=== PATIENT | female | born 1995 | race Caucasian/White ===

== ENCOUNTER 2021-11-04 09:55 | Outpatient (CLI) | payer OTHER | END 2021-11-04 09:56 | disposition home or self-care (01) | LOC: CSHULT 09:55 | PROVIDERS: ATTEND Family Medicine | DX: O09.892 Supervision of other high risk pregnancies, second trimester (principal); Z3A.20 20 weeks gestation of pregnancy | CPT/HCPCS: 76805 ==

== ENCOUNTER 2022-02-10 10:00 | Day surgery (SDC) | payer OTHER ==
[2022-02-10 11:02] VITALS: BMI 41.8
== END 2022-02-10 12:30 | disposition home or self-care (01) ==
LOC: CSHLD/OP 10:00
PROVIDERS: ATTEND Family Medicine
DX: O24.913 Unspecified diabetes mellitus in pregnancy, third trimester (principal); Z3A.35 35 weeks gestation of pregnancy; Z79.4 Long term (current) use of insulin
CPT/HCPCS: 76815; 76819

== ENCOUNTER 2022-02-17 09:28 | Day surgery (SDC) | payer OTHER | END 2022-02-17 10:55 | disposition home or self-care (01) | LOC: CSHLD/OP 09:28 | PROVIDERS: ATTEND Family Medicine | DX: O24.913 Unspecified diabetes mellitus in pregnancy, third trimester (principal); Z79.4 Long term (current) use of insulin; Z3A.37 37 weeks gestation of pregnancy | CPT/HCPCS: 76819; 99282 ==

== ENCOUNTER 2022-02-24 09:49 | Day surgery (SDC) | payer OTHER | END 2022-02-24 13:00 | disposition home or self-care (01) | LOC: CSHLD/OP 09:49 | PROVIDERS: ATTEND Family Medicine | DX: O24.419 Gestational diabetes mellitus in pregnancy, unspecified control (principal); Z3A.36 36 weeks gestation of pregnancy; Z20.822 Contact with and (suspected) exposure to COVID-19 | CPT/HCPCS: 59025; 76815; 76819; 99282 ==

== ENCOUNTER 2022-02-24 13:04 | Outpatient (CLI) | payer OTHER ==
[2022-02-24 21:34] LABS: SARS-CoV-2 PCR by NAA Not Detected (NotDetected)
== END 2022-02-24 13:05 | disposition home or self-care (01) ==
LOC: CSHLAB 13:04
PROVIDERS: ATTEND Family Medicine
DX: Z20.822 Contact with and (suspected) exposure to COVID-19 (principal)
CPT/HCPCS: 59025; 76815; 76819; 99282; U0003; U0005

== ENCOUNTER 2022-02-28 18:00 | Inpatient (IN) | payer OTHER ==
[~2022-02-28 18:00] MED LIST: Bupivacaine 0.25% HCL 30 ML VIAL ONE; Terbutaline Sulfate 1 MG/ML VIAL ONE
[2022-02-28 19:29] VITALS: BMI 41.6
[2022-02-28] MEDS ORDERED: Diphenoxylate HCl/Atropine Tablet PO PRN (19:52)
[2022-02-28] MEDS ORDERED: Promethazine HCl 25 MG/ML VIAL IM PRN (19:52)
[2022-02-28] MEDS ORDERED: Ondansetron PF 4 MG/2 ML Vial IVP PRN (19:52)
[2022-02-28] MEDS ORDERED: HYDROcodone/Acetaminophen 5/325 mg Tablet PO PRN (19:52)
[2022-02-28] MEDS ORDERED: Butorphanol Tartrate 1 MG/ML VIAL SLOW IVP PRN (19:52)
[2022-02-28] MEDS ORDERED: Lidocaine 1% (PF) 30 ML VIAL SC PRN (19:52)
[2022-02-28] MEDS ORDERED: Methylergonovine 0.2 MG/ML VIAL IM PRN (19:52)
[2022-02-28] MEDS ORDERED: hydrALAZINE 20 MG/ML VIAL SLOW IVP PRN (19:52)
[2022-02-28] MEDS ORDERED: Carboprost 250 MCG/ML AMP IM PRN (19:52)
[2022-02-28] MEDS ORDERED: Acetaminophen 500 MG TAB PO PRN (19:52)
[2022-02-28] MEDS ORDERED: Misoprostol 200 MCG TAB PR PRN (19:52)
[2022-02-28] MEDS ORDERED: Ibuprofen 800 MG TAB PO PRN (19:52)
[2022-02-28] MEDS ORDERED: NS w/ Oxytocin 30 units 500 ML IV SCH ×2 (20:00)
[2022-02-28 20:28] LABS: Hemoglobin 10.5 g/dL (12.0-15.5); Mean Corpuscular HGB CONC 33.2 g/dL (32.0-36.0); Mean Corpuscular Hemoglobin 25.1 pg (27.0-33.0); Mean Corpuscular Volume 75.6 fl (81.6-98.3); Mean Platelet Volume 10.4 fl (7.4-10.4); Platelet Count 303 10x3/uL (150-450); RBC Distribution Width 13.3 % (11.5-14.5); Red Blood Cell (RBC) Count 4.18 10x6/uL (3.90-5.03)
[2022-02-28] MEDS: Misoprostol 100 MCG TAB PO SCH (20:40)
[2022-02-28 20:48] LABS: Glucose 242 mg/dL (70-105)
[2022-02-28 21:00] LABS: Hep B Surf Ag Non-Reactive S/CO (NonReactive); Syphilis Antibody Nonreactive (Nonreactive); Syphilis Antibody Index 0.04 S/CO (<1.00 Non-Reactive)
[2022-02-28 21:08] LABS: HBSAg Index 0.16 S/CO (0-0.99)
[2022-02-28] MEDS ORDERED: Lantus 1000 UNITS/10 ML VIAL SC SCH (21:15)
[2022-02-28] MEDS ORDERED: HumaLOG 300 UNITS/3 ML VIAL SC SCH (21:15)
[2022-03-01] MEDS ORDERED: Fentanyl 2 mcg/Bup 0.1% Cadd 100 ML ONE (10:19)
[2022-03-01] MEDS ORDERED: Ondansetron PF 4 MG/2 ML Vial IVP PRN ×2 (10:27→22:15)
[2022-03-01] MEDS ORDERED: Moisturizing Cream (Eucerin) 113 GM JAR TOP PRN (10:27)
[2022-03-01] MEDS ORDERED: diphenhydrAMINE 50 MG/ML VIAL IVP PRN (10:27)
[2022-03-01] MEDS ORDERED: Acetaminophen 325 MG TAB PO PRN (10:27)
[2022-03-01] MEDS ORDERED: Promethazine HCl 25 MG/ML VIAL IM PRN ×2 (10:27→22:15)
[2022-03-01] MEDS ORDERED: ePHEDrine Sulfate 50 MG/10 ML VIAL SLOW IVP PRN (10:27)
[2022-03-01] MEDS ORDERED: Lactated Ringer's 500 ML IV PRN (10:27)
[2022-03-01] MEDS ORDERED: Naloxone HCl 0.4 mg/ml Vial IVP PRN ×2 (10:27)
[2022-03-01] MEDS ORDERED: Communication Order-Pharmacy FS SCH (10:30)
[2022-03-01] MEDS: Lactated Ringer's 1,000 ML IV SCH (10:32)
[2022-03-01] MEDS ORDERED: Fentanyl 2 mcg/Bupivacaine 0.1% Cassette 100 ML EPIDURAL SCH (11:00)
[2022-03-01] MEDS ORDERED: Terbutaline Sulfate 1 MG/ML VIAL SC SCH (16:30)
[2022-03-01] MEDS ORDERED: metFORMIN 500 MG TAB PO SCH (19:30)
[2022-03-01] MEDS ORDERED: Boostrix 0.5 ML (Tdap) VIAL IM ONE (22:15)
[2022-03-01] MEDS ORDERED: NS w/ Oxytocin 30 units 500 ML IV SCH (22:15)
[2022-03-01] MEDS ORDERED: diphenhydrAMINE 25 MG CAP PO PRN (22:15)
[2022-03-01] MEDS ORDERED: Benzocaine-Menthol 82.5 ML CAN TOP PRN (22:15)
[2022-03-01] MEDS ORDERED: Bisacodyl 10 MG SUPP PR PRN (22:15)
[2022-03-01] MEDS ORDERED: hydrALAZINE 20 MG/ML VIAL SLOW IVP PRN (22:15)
[2022-03-01] MEDS ORDERED: Milk Of Magnesia 30 ML UDCUP PO PRN (22:15)
[2022-03-01] MEDS ORDERED: HYDROcodone/Acetaminophen 5/325 mg Tablet PO PRN (22:15)
[2022-03-01] MEDS: Docusate 100 MG CAP PO SCH (23:30)
[2022-03-01] MEDS: Ibuprofen 800 MG TAB PO SCH (23:30)
[2022-03-02] MEDS: Misoprostol 100 MCG TAB PO SCH (02:02)
[2022-03-02] MEDS: Lactated Ringer's 1,000 ML IV SCH (02:03)
[2022-03-02] MEDS: Ibuprofen 800 MG TAB PO SCH ×4 (06:39→21:59)
[2022-03-02] MEDS ORDERED: metFORMIN 500 MG TAB PO SCH (08:00)
[2022-03-02] MEDS: Ferrous Sulfate 325 MG TAB PO SCH ×2 (08:03→15:56)
[2022-03-02] MEDS: Docusate 100 MG CAP PO SCH ×2 (08:55→21:59)
[2022-03-02] MEDS: Prenatal Vitamin 1 TAB PO SCH (08:55)
[2022-03-02] MEDS: metFORMIN 500 MG TAB PO SCH ×2 (15:58→17:05)
[2022-03-03] MEDS: Ibuprofen 800 MG TAB PO SCH ×2 (06:00→14:27)
[2022-03-03] MEDS: Ferrous Sulfate 325 MG TAB PO SCH ×2 (08:44→17:02)
[2022-03-03] MEDS: metFORMIN 500 MG TAB PO SCH ×2 (10:20→17:59)
[2022-03-03] MEDS: Docusate 100 MG CAP PO SCH (10:20)
[2022-03-03] MEDS: Prenatal Vitamin 1 TAB PO SCH (10:20)
[2022-03-03 10:31] VITALS: BP 116/63; TEMP 98.2
[2022-03-03] MEDS ORDERED: Measles/Mumps/Rubella 10 MCG/0.5 ML VIAL SC ONE (17:45)
== END 2022-03-03 18:05 | disposition home or self-care (01) | DRG 807 ==
LOC: CSHLD 18:59 → CSHPP 03-01 21:56
PROVIDERS: ADMIT Family Medicine; ATTEND Family Medicine
PROC: 10E0XZZ Delivery of Products of Conception, External Approach (ICD-10-PCS; principal; 2022-03-01)
PROC: 10907ZC Drainage of Amniotic Fluid, Therapeutic from Products of Conception, Via Natural or Artificial Opening (ICD-10-PCS; 2022-03-01)
PROC: 3E0P7VZ Introduction of Hormone into Female Reproductive, Via Natural or Artificial Opening (ICD-10-PCS; 2022-03-01)
PROC: 10H07YZ Insertion of Other Device into Products of Conception, Via Natural or Artificial Opening (ICD-10-PCS; 2022-03-01)
PROC: 0UQMXZZ Repair Vulva, External Approach (ICD-10-PCS; 2022-03-01)
DX: O24.12 Pre-existing type 2 diabetes mellitus, in childbirth (principal); Z37.0 Single live birth; O70.0 First degree perineal laceration during delivery; O76 Abnormality in fetal heart rate and rhythm complicating labor and delivery; O99.214 Obesity complicating childbirth; E66.01 Morbid (severe) obesity due to excess calories; E11.9 Type 2 diabetes mellitus without complications; Z3A.37 37 weeks gestation of pregnancy; Z79.4 Long term (current) use of insulin; Z79.899 Other long term (current) drug therapy; Z91.14 Patient's other noncompliance with medication regimen; O69.81X0 Labor and delivery complicated by cord around neck, without compression, not applicable or unspecified
CPT/HCPCS: 36416; 51702; 82947; 85027; 86780; 86850; 86900; 86901; 87340; 90707; J1815; J2590; J3105; J7120; S0020